=== PATIENT | female | born 1965 | race Caucasian/White ===

== ENCOUNTER 2018-10-03 09:40 | Inpatient (IN) | payer OTHER ==
[2018-10-03 10:14] VITALS: BMI 29.2
--- NOTE | 2018-10-03 10:58 | HP ---
CIWA Score Nausea/Vomitin Muscle Tremors: 4-Moderate,w/Arms Extend Anxiety: 3 Agitation: 3 Paroxysmal Sweats: 1-Minimal Palms Moist Orientation: 0-Oriented Tacttile Disturbances: 0-None Auditory Disturbances: 3-Moderate Harsh/Frighten Visual Disturbances: 0-None Headache: 3-Moderate CIWA-Ar Total Score: 20 - Admission Criteria OASAS Guidelines: Admission for Medically Managed Detox: Requires at least one of the followin. CIWA greater than 12 2. Seizures within the past 24 hours 3. Delirium tremens within the past 24 hours 4. Hallucinations within the past 24 hours 5. Acute intervention needed for co occurring medical disorder 6. Acute intervention needed for co occurring psychiatric disorder 7. Severe withdrawal that cannot be handled at a lower level of care (continued vomiting, continued diarrhea, abnormal vital signs) requiring intravenous medication and/or fluids 8. Admission [facility] Chief Complaint: "I need help with my drinking problem." Allergies/Adverse Reactions: Allergies Allergy/AdvReac Type Severity Reaction Status Date / Time No Known Drug Allergies Allergy Verified 10/03/18 10:10 shellfish derived Allergy Verified 10/03/18 10:09 History of Present Illness: 53 year old female with alcohol dependence. She relapsed 10/01/18 due to depression. She has a lot medical issues, personal issues all came to a head and caused her to drink again. She was abstinent from 2013 to just 2 days ago. She is drinking 1 6 pack of beer daily, first started drinking at the age of 15. Alcohol became a problem for her in her 30's when she was drinking heavily. She drank over 15 years before she attended her first detox and rehab. She's had 10 or more admissions to detox and rehab. Her last drink was this morning. She has had blackouts in past but no seizures. She used to use crack/cocaine which she stopped 12/24/2011. She smokes ciggarettes 1PPD since 15 years of age., last smoked today. PMH: History of stomach ulcers, asthma, DM, HLD Psurg Hx: back, shoulder and head for cysts removals Psych Hx: Bipolar, Schizoaffective Meds: celexa, risperdal, vistaril for sleep. All: None, but shellfish allergy She has a home, has family support systems. She has no pending legal issues. - Ebola screening Have you traveled outside of the country in the last 21 days: No Have you had contact with anyone from an Ebola affected area: No Have you been sick,other than usual withdrawal symptoms: No Do you have a fever: No - Review of Systems Constitutional: Chills, Diaphoresis EENT: reports: No Symptoms Reported Respiratory: reports: Cough (slight dry cough) Cardiac: reports: No Symptoms Reported GI: reports: Nausea : reports: No Symptoms Reported Musculoskeletal: reports: Back Pain, Other (knee pain) Integumentary: reports: No Symptoms Reported Neuro: reports: No Symptoms reported Endocrine: reports: No Symptoms Reported Hematology: reports: No Symptoms Reported Psychiatric: reports: Judgement Intact, Mood/Affect Appropiate, Orientated x3 Other Systems: Reviewed and Negative Patient History - Patient Medical History Hx Asthma: Yes (On Albuterol Inhaler) Hx Chronic Obstructive Pulmonary Disease (COPD): Yes Hx Cardiac Disorders: No Hx Hypertension: No Hx Hypercholesterolemia: Yes (ON SIMVASTATIN 20 MG NIGHTLY) Hx Seizures: No Hx Diabetes: Yes (Metformin) Hx Gastrointestinal Disorders: No Hx Genitourinary Disorders: No Hx Sexually Transmitted Disorders: Yes Hx Renal Disease (ESRD): No Hx Thyroid Disease: No Hx Human Immunodeficiency Virus (HIV): No (NEGATIVE IN 04/2011) Hx Hepatitis C: No Hx Depression: Yes Hx Suicide Attempt: No Hx Bipolar Disorder: Yes Hx Schizophrenia: Yes - Patient Surgical History Past Surgical History: Yes Hx Neurologic Surgery: Yes (LEFT SIDE OF HEAD DUE TO CYST 07/2011) Hx Orthopedic Surgery: Yes (LEFT SHOULDER CYXT REMOVED 07/2011) Other Surgical History: lipoma removed from shoulder and scalp Anesthesia Reaction: No - PPD History Previous Implant?: Yes Documented Results: Negative w/proof Implanted On Prior R Admission?: Yes Date: 12/29/11 Results: negative PPD to be Administered?: No - Reproductive History Patient is a Female of Child Bearing Age (11 -55 yrs old): Yes Last Menstrual Period: 05/09/10 - Smoking Cessation Smoking history: Current every day smoker Have you smoked in the past 12 months: Yes Aproximately how many cigarettes per day: 29 Hx Chewing Tobacco Use: No Initiated information on smoking cessation: No 'Breaking Loose' booklet given: 10/03/18 - Substance & Tx. History Hx Alcohol Use: Yes (6 pack every day of beer) Hx Substance Use: Yes Substance Use Type: Alcohol Hx Substance Use Treatment: Yes (multiple detox and rehabs in the past) - Substances abused Alcohol Substance route: Oral Frequency: Daily Amount used: 1 6 PACK BEER FOR THE LAST 3 DAYS Age of first use: 15 Date of last use: 10/03/18 Family Disease History - Family Disease History Family Disease History: Diabetes: Mother, Heart Disease: Mother Admission Physical Exam S - Vital Signs Vital Signs: Vital Signs - 24 hr 10/03/18 10:05 Temperature 99.1 F Pulse Rate 85 Respiratory 20 Rate Blood Pressure 96/57 L - Physical General Appearance: Yes: Mild Distress, Moderate Distress HEENTM: Yes: EOMI, Hearing grossly Normal, Normocephalic, Normal Voice, YISEL, Pharynx Normal Respiratory: Yes: Chest Non-Tender, Lungs Clear, Normal Breath Sounds, No Respiratory Distress, No Accessory Muscle Use Neck: Yes: No masses,lesions,Nodules, Supple, Trachea in good position Breast: Yes: Breast Exam Deferred Cardiology: Yes: Regular Rhythm, Regular Rate, S1, S2 Abdominal: Yes: Non Tender, Soft, Increased Bowel Sounds, Protuberent Genitourinary: Yes: Within Normal Limits Back: Yes: Normal Inspection Musculoskeletal: Yes: full range of Motion, Gait Steady, Pelvis Stable Extremities: Yes: Normal Capillary Refill, Normal Inspection, Normal Range of Motion, Non-Tender Neurological: Yes: sulky driver II-XII NML intact, Fully Oriented, Alert, Motor Strength 5/5 Integumentary: Yes: Normal Color, Dry, Warm Lymphatic: Yes: Within Normal Limits - Diagnostic (1) Asthma Current Visit: Yes Status: Active (2) DM Diabetes mellitus type 2 Current Visit: Yes Status: Active (3) Hypercholesterolemia Current Visit: Yes Status: Active Screened but not Admitted - Documentation of Visit Screened but not Admitted: No Breathalyzer - Breathalyzer Breathalyzer: 0.005 (last drank this morning.) Vital Signs - Vital Signs Vital signs refused: No Temperature: 99.1 F Temperature source: Oral Pulse Rate: 85 Respiratory Rate: 20 Blood Pressure: 96/57 BP Location: Left Arm Blood Pressure position: Sitting - Height Height: 5 ft - Weight Weight: 150 lb Weight measurement method: Standing scale - BMI Body Mass Index (BMI): 29.2 - Bowel Function Bowel Movement: No Inpatient Rehab Admission - Rehab Decision to Admit Inpatient rehab admission?: No
[2018-10-03] MEDS ORDERED: hydrOXYzine PAMOATE 25 MG CAPSULE (FP) PO PRN (11:07)
[2018-10-03] MEDS ORDERED: MELATONIN 5 MG TABLETS PO PRN (11:07)
[2018-10-03] MEDS ORDERED: chlordiazePOXIDE HCL 25 MG CAPSULE PO PRN (11:07)
[2018-10-03] MEDS ORDERED: ACETAMINOPHEN 325 MG TABLET (FP) PO PRN ×2 (11:07)
[2018-10-03] MEDS ORDERED: METHOCARBAMOL 500 MG TABLET PO PRN (11:07)
[2018-10-03] MEDS ORDERED: IBUPROFEN 400 MG TABLET (FP) PO PRN (11:07)
[2018-10-03] MEDS ORDERED: MAGNESIUM CITRATE 300 ML BOTTLE PO PRN (11:07)
[2018-10-03] MEDS ORDERED: MENTHOL/PHENOL 1 EACH UD MM PRN (11:07)
[2018-10-03] MEDS ORDERED: MAGNESIUM HYDROX 2400MG/30ML ORAL SUSPENSION 30 ML CUP PO PRN (11:07)
[2018-10-03] MEDS ORDERED: BISMUTH SUBSALICYLATE 262 MG/15 ML BTL PO PRN (11:07)
[2018-10-03] MEDS ORDERED: MAG HYDROX/AL HYDROX/SIMETH 30 ML UNIT-DOSE CUP PO PRN (11:07)
[2018-10-03] MEDS ORDERED: ERGOCALCIFEROL (VIT D2) 50,000 UNIT (1.25 MG) CAPSULE PO SCH (11:45)
[2018-10-03 14:25] LABS: HEMATOCRIT 35.5 % (32.4-45.2); HEMOGLOBIN 11.9 GM/dL (10.7-15.3); MCH 30.2 pg (25.7-33.7); MCHC 33.6 g/dl (32.0-36.0); MEAN CELL VOLUME 89.9 fl (80-96); MEAN PLT VOLUME 10.6 fl (7.5-11.1); PLATELET COUNT 161 K/MM3 (134-434); RBC 3.95 M/mm3 (3.60-5.2); RDW 14.5 % (11.6-15.6); WHITE BLOOD COUNT 5.4 K/mm3 (4.0-10.0)
[2018-10-03 14:46] LABS: ALBUMIN 3.1 g/dl (3.4-5.0); BILIRUBIN,TOTAL 0.1 mg/dL (0.2-1); BLOOD UREA NITROGEN 5.7 mg/dL (7-18); CALCIUM 8.8 mg/dL (8.5-10.1); CREATININE 0.6 mg/dL (0.55-1.3); POTASSIUM 3.9 mmol/L (3.5-5.1); TOT PROT 6.4 g/dl (6.4-8.2)
[2018-10-03 15:45] LABS: RPR REACTIVE 1:2 (NONREACTIVE)
[2018-10-03 15:47] LABS: TREPONEMA ANTIBODY PREVIOUSLY REACTIVE (NONREACTIVE)
[2018-10-03] MEDS: sitaGLIPtin PHOSPHATE 50 MG TABLET PO SCH (16:44)
[2018-10-03] MEDS: metFORMIN HCL 500 MG TABLET (FP) PO SCH (16:44)
[2018-10-03] MEDS ORDERED: PATIENT'S OWN MEDICATION (NON-FORMULARY) (Sitagliptin Phos/Metformin Hcl [Janumet 50-1,000 PO SCH (22:00)
[2018-10-03] MEDS: PANTOPRAZOLE 20 MG TABLET (FP) PO SCH (22:15)
[2018-10-03] MEDS: MONTELUKAST NA 10 MG TABLET PO SCH (22:15)
[2018-10-03] MEDS: THIAMINE HCL 100 MG TABLET (FP) PO SCH (22:15)
[2018-10-03] MEDS: chlordiazePOXIDE HCL 25 MG CAPSULE PO SCH (22:17)
[2018-10-04] MEDS: chlordiazePOXIDE HCL 25 MG CAPSULE PO SCH ×4 (05:55→22:34)
[2018-10-04] MEDS: sitaGLIPtin PHOSPHATE 50 MG TABLET PO SCH ×2 (07:20→18:09)
[2018-10-04] MEDS: metFORMIN HCL 500 MG TABLET (FP) PO SCH ×2 (07:20→17:50)
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
[2018-10-04] MEDS: ASPIRIN COATED 81 MG TABLET.EC PO SCH (10:48)
[2018-10-04] MEDS: PANTOPRAZOLE 20 MG TABLET (FP) PO SCH ×2 (10:48→22:35)
[2018-10-04] MEDS: LORATADINE 10 MG TABLET PO SCH (10:48)
[2018-10-04] MEDS: PRENATAL VITAMINS W/ FOLIC ACID TABLET (FP) PO SCH (10:49)
[2018-10-04] MEDS: CITALOPRAM HYDROBROMIDE 20 MG TABLET (FP) PO SCH (10:49)
[2018-10-04] MEDS: LISINOPRIL 5 MG TABLET (FP) PO SCH (10:49)
--- NOTE | 2018-10-04 13:21 | PN ---
[facility] CIWA - CIWA Score Nausea/Vomitin-No Nausea/No Vomiting Muscle Tremors: 3 Anxiety: 2 Agitation: 3 Paroxysmal Sweats: 3 Orientation: 0-Oriented Tacttile Disturbances: 0-None Auditory Disturbances: 0-None Visual Disturbances: 0-None Headache: 0-None Present CIWA-Ar Total Score: 11 S Progress Note (SOAP) Subjective: sweats shakes interrupted sleep body aches Objective: 10/04/18 13:19 Vital Signs Temperature 98.3 F 10/04/18 09:48 Pulse Rate 70 10/04/18 09:48 Respiratory Rate 18 10/04/18 09:48 Blood Pressure 112/70 10/04/18 09:48 O2 Sat by Pulse Oximetry (%) Laboratory Tests 10/03/18 10/03/18 10/03/18 11:05 11:05 11:05 WBC 5.4 RBC 3.95 Hgb 11.9 Hct 35.5 MCV 89.9 MCH 30.2 MCHC 33.6 RDW 14.5 Plt Count 161 MPV 10.6 Sodium 138 Potassium 3.9 Chloride 104 Carbon Dioxide 28 Anion Gap 7 L BUN 5.7 L Creatinine 0.6 Est GFR (CKD-EPI)AfAm 122.32 Est GFR (CKD-EPI)NonAf 105.54 POC Glucometer Random Glucose 86 Calcium 8.8 Total Bilirubin 0.1 L AST 11 L ALT 12 L Alkaline Phosphatase 68 Total Protein 6.4 Albumin 3.1 L RPR Titer Reactive 1:2 H T.pallidum Ab (A) Previously reactive 10/03/18 10/03/18 10/04/18 11:25 16:45 05:52 WBC RBC Hgb Hct MCV MCH MCHC RDW Plt Count MPV Sodium Potassium Chloride Carbon Dioxide Anion Gap BUN Creatinine Est GFR (CKD-EPI)AfAm Est GFR (CKD-EPI)NonAf POC Glucometer 90 120 82 Random Glucose Calcium Total Bilirubin AST ALT Alkaline Phosphatase Total Protein Albumin RPR Titer T.pallidum Ab (MHA) aaox3 ambulating no acute distress Assessment: 10/04/18 13:19 withdrawal sx Plan: continue detox increase fluids
[2018-10-04] MEDS ORDERED: ATORVASTATIN CA 10 MG TABLET (FP) PO SCH (22:00)
[2018-10-04] MEDS ORDERED: risperiDONE 2 MG TABLET PO SCH (22:00)
[2018-10-04] MEDS: THIAMINE HCL 100 MG TABLET (FP) PO SCH (22:35)
[2018-10-04] MEDS: MONTELUKAST NA 10 MG TABLET PO SCH (22:35)
[2018-10-05] MEDS: sitaGLIPtin PHOSPHATE 50 MG TABLET PO SCH (06:18)
[2018-10-05] MEDS: metFORMIN HCL 500 MG TABLET (FP) PO SCH (06:18)
[2018-10-05] MEDS: chlordiazePOXIDE HCL 25 MG CAPSULE PO SCH ×2 (06:19→10:26)
[2018-10-05 09:45] VITALS: BP 92/64; PULSE 59; TEMP 96.9
[2018-10-05] MEDS: CITALOPRAM HYDROBROMIDE 20 MG TABLET (FP) PO SCH (10:26)
[2018-10-05] MEDS: PRENATAL VITAMINS W/ FOLIC ACID TABLET (FP) PO SCH (10:26)
[2018-10-05] MEDS: ASPIRIN COATED 81 MG TABLET.EC PO SCH (10:26)
[2018-10-05] MEDS: LORATADINE 10 MG TABLET PO SCH (10:26)
[2018-10-05] MEDS: LISINOPRIL 5 MG TABLET (FP) PO SCH (10:26)
[2018-10-05] MEDS: PANTOPRAZOLE 20 MG TABLET (FP) PO SCH (10:26)
--- NOTE | 2018-10-05 13:34 | PN ---
[facility] Progress Note Note: pt c/o of withdrawals and aggressive symptomatic management attempted however pt in spite of extensive motivational counseling regarding seizures, DT's, and or loss pt chose to sign out AMA.
--- NOTE | 2018-10-05 13:37 | DS ---
[facility] Detox Discharge Summary Admission Date: 10/03/18 - History Present History: Alcohol Dependence - Physical Exam Results Vital Signs: Vital Signs Temperature 96.9 F L 10/05/18 09:45 Pulse Rate 59 L 10/05/18 09:45 Respiratory Rate 18 10/05/18 09:45 Blood Pressure 92/64 10/05/18 09:45 O2 Sat by Pulse Oximetry (%) Pertinent Admission Physical Exam Findings: pt arrived in withdrawals Laboratory Tests 10/03/18 10/03/18 10/03/18 11:05 11:05 11:05 WBC 5.4 RBC 3.95 Hgb 11.9 Hct 35.5 MCV 89.9 MCH 30.2 MCHC 33.6 RDW 14.5 Plt Count 161 MPV 10.6 Sodium 138 Potassium 3.9 Chloride 104 Carbon Dioxide 28 Anion Gap 7 L BUN 5.7 L Creatinine 0.6 Est GFR (CKD-EPI)AfAm 122.32 Est GFR (CKD-EPI)NonAf 105.54 POC Glucometer Random Glucose 86 Calcium 8.8 Total Bilirubin 0.1 L AST 11 L ALT 12 L Alkaline Phosphatase 68 Total Protein 6.4 Albumin 3.1 L RPR Titer Reactive 1:2 H T.pallidum Ab (MHA) Previously reactive 10/03/18 10/03/18 10/04/18 11:25 16:45 05:52 WBC RBC Hgb Hct MCV MCH MCHC RDW Plt Count MPV Sodium Potassium Chloride Carbon Dioxide Anion Gap BUN Creatinine Est GFR (CKD-EPI)AfAm Est GFR (CKD-EPI)NonAf POC Glucometer 90 120 82 Random Glucose Calcium Total Bilirubin AST ALT Alkaline Phosphatase Total Protein Albumin RPR Titer T.pallidum Ab (MHA) 10/04/18 10/05/18 16:28 06:14 WBC RBC Hgb Hct MCV MCH MCHC RDW Plt Count MPV Sodium Potassium Chloride Carbon Dioxide Anion Gap BUN Creatinine Est GFR (CKD-EPI)AfAm Est GFR (CKD-EPI)NonAf POC Glucometer 84 137 Random Glucose Calcium Total Bilirubin AST ALT Alkaline Phosphatase Total Protein Albumin RPR Titer T.pallidum Ab (MHA) today pt is aaox3 irritable and wanting to sign out regardless of means to encourage to stay and prevent relapse. - Treatment Hospital Course: Rehab Referral Accepted Patient has Accepted a Rehab Referral to: declined rehab; referral provided - Medication Discharge Medications: Ambulatory Orders Citalopram Hydrobromide [Celexa -] 20 mg PO DAILY 01/03/12 Multivitamin [Multivitamins] 1 each PO DAILY 01/03/12 Risperidone [Risperdal] 2 mg PO DAILY 01/03/12 Simvastatin [Zocor -] 20 mg PO DAILY 01/03/12 Thiamine HCl [Vitamin B-1] 100 mg PO DAILY 01/03/12 Aspirin [Aspirin EC] 81 mg PO DAILY 10/03/18 Ergocalciferol (Vitamin D2) [Drisdol] 50,000 unit PO WEEKLY 10/03/18 Famotidine [Pepcid] 40 mg PO HS 10/03/18 Folic Acid - 1 mg PO DAILY 10/03/18 Lisinopril 5 mg PO DAILY 10/03/18 Loratadine 10 mg PO DAILY 10/03/18 Montelukast Na [Singulair -] 10 mg PO HS 10/03/18 Sitagliptin Phos/Metformin HCl [Janumet 50-1,000 mg Tablet] 1 each PO BID - Diagnosis (1) Alcohol dependence, uncomplicated Status: Chronic (2) Alcohol-induced sleep disorder Status: Acute (3) Asthma Status: Chronic (4) DM Diabetes mellitus type 2 Status: Acute (5) Hypercholesterolemia Status: Acute (6) Nicotine dependence Status: Chronic Qualifiers: Nicotine product type: cigarettes Substance use status: uncomplicated Qualified Code(s): F17.210 - Nicotine dependence, cigarettes, uncomplicated (7) Schizoaffective disorder Status: Chronic (8) PUD (peptic ulcer disease) Status: Resolved - AMA Did Patient Leave Against Medical Advice: Yes
[2018-10-06] MEDS ORDERED: chlordiazePOXIDE HCL 10 MG CAPSULE PO PRN
[2018-10-06] MEDS ORDERED: chlordiazePOXIDE HCL 10 MG CAPSULE PO SCH (05:00)
[2018-10-07] MEDS ORDERED: chlordiazePOXIDE HCL 10 MG CAPSULE PO SCH (05:00)
[2018-10-08] MEDS ORDERED: chlordiazePOXIDE HCL 10 MG CAPSULE PO ONE (05:00)
== END 2018-10-05 12:00 | disposition left against medical advice (07) | DRG 770 ==
LOC: YASAS 09:40 → Y6N 11:29
PROVIDERS: ADMIT Surgery; ATTEND Surgery
PROC: HZ2ZZZZ Detoxification Services for Substance Abuse Treatment (ICD-10-PCS; principal; 2018-10-03)
DX: F10.230 Alcohol dependence with withdrawal, uncomplicated (principal); F17.210 Nicotine dependence, cigarettes, uncomplicated; F10.282 Alcohol dependence with alcohol-induced sleep disorder; F25.9 Schizoaffective disorder, unspecified; E78.00 Pure hypercholesterolemia, unspecified; E11.9 Type 2 diabetes mellitus without complications; Z79.84 Long term (current) use of oral hypoglycemic drugs; J45.909 Unspecified asthma, uncomplicated; Z87.11 Personal history of peptic ulcer disease
CPT/HCPCS: 36415; 80053; 82962; 85027; 86480; 86593; 86780